=== PATIENT | female | born 1990 | race Two or more races ===

== ENCOUNTER 2019-06-29 19:49 | Emergency (ER) | payer SELFPAY ==
[~2019-06-29] VITALS: Ht 175.3 cm; Wt 90.7 kg
[2019-06-29 19:50] VITALS: BP 142/98
[2019-06-29] MEDS ORDERED: TDAP [DIPH/PERTUSSIS/TET] 0.5 ML VIAL IM ONE ×2 (20:00→20:04)
--- NOTE | 2019-06-29 20:09 | NUR ---
XRAY AT BEDSIDE
--- NOTE | 2019-06-29 20:09 | NUR ---
[facility] AT BEDSIDE
--- NOTE | 2019-06-29 21:43 | NUR ---
Patient discharged to home in stable condition. Written and verbal after care instructions given. Patient verbalizes understanding of instruction.
== END 2019-06-29 21:44 | disposition home or self-care (01) ==
LOC: ER 19:49
DX: S50.01XA Contusion of right elbow, initial encounter (principal); S90.01XA Contusion of right ankle, initial encounter; Y08.89XA Assault by other specified means, initial encounter; Y93.89 Activity, other specified; Y92.89 Other specified places as the place of occurrence of the external cause; Y99.8 Other external cause status
CPT/HCPCS: 73080-TC; 73090-TC; 73590-TC; 73610-TC; 90715